=== PATIENT | female | born 1940 | race Caucasian/White ===

== ENCOUNTER 2023-03-20 10:24 | Outpatient (CLI) | payer MEDICARE, BC ==
[2023-03-20 11:59] LABS: Hematocrit 37.2 % (34.9-44.5); Hemoglobin 11.7 g/dL (12.0-15.5); Mean Corpuscular HGB CONC 31.5 g/dL (32.0-36.0); Mean Corpuscular Hemoglobin 32.7 pg (27.0-33.0); Mean Corpuscular Volume 103.9 fl (81.6-98.3); Mean Platelet Volume 9.5 fl (7.4-10.4); Platelet Count 293 10x3/uL (150-450); RBC Distribution Width 14.7 % (11.5-14.5); Red Blood Cell (RBC) Count 3.58 10x6/uL (3.90-5.03)
[2023-03-20 12:12] LABS: INR-International Normal Ratio 1.1; PTT 28.2 sec (22.0-33.0); Prothrombin Time 11.9 sec (9.5-12.1)
[2023-03-20 12:25] LABS: Anion Gap 17 mmol/L (10-20); BUN (Urea Nitrogen) 34 mg/dL (9.8-20.1); Calc. Creatinine Clearance 0 mL/min (70-130); Calcium 9.6 mg/dL (7.8-10.44); Carbon Dioxide 23 mmol/L (23-31); Chloride 105 mmol/L (98-107); Estimated GFR 49; Glucose 105 mg/dL (83-110); Potassium 4.1 mmol/L (3.5-5.1); Sodium 141 mmol/L (136-145)
== END 2023-03-20 10:25 | disposition home or self-care (01) ==
LOC: LABBT 10:24
PROVIDERS: ATTEND Urology
DX: Z01.818 Encounter for other preprocedural examination (principal); D49.4 Neoplasm of unspecified behavior of bladder; R31.0 Gross hematuria
CPT/HCPCS: 71046; 80048; 85027; 85610; 85730; 87077; 87086; 87186

== ENCOUNTER 2023-03-26 08:20 | Day surgery (SDC) | payer MEDICARE, BC ==
[2023-03-20 11:37] VITALS: BMI 26.6
[2023-03-26] MEDS ORDERED: fentaNYL PF 100 MCG/2 ML SYRINGE ONE (10:37)
[2023-03-26] MEDS ORDERED: LevoFLOXacin 500 mg/D5W 100 ML BAG ONE (10:44)
[2023-03-26] MEDS ORDERED: ePHEDrine Sulfate 50 MG/10 ML VIAL ONE (11:03)
[2023-03-26] MEDS ORDERED: Ondansetron PF 4 MG/2 ML Vial ONE (11:03)
[2023-03-26] MEDS ORDERED: Lidocaine 1% PF 5 ML VIAL ONE (11:03)
[2023-03-26] MEDS ORDERED: Dexamethasone 20 MG/5 ML VIAL ONE (11:03)
[2023-03-26] MEDS ORDERED: PROPOFOL 200 MG/20 ML VIAL ONE (11:03)
== END 2023-03-26 12:57 | disposition home or self-care (01) ==
LOC: SDC 08:20
PROVIDERS: ATTEND Urology
PROC: 0TBB8ZX Excision of Bladder, Via Natural or Artificial Opening Endoscopic, Diagnostic (ICD-10-PCS; principal; 2023-03-26)
DX: N30.21 Other chronic cystitis with hematuria (principal); D49.4 Neoplasm of unspecified behavior of bladder; I10 Essential (primary) hypertension; K21.9 Gastro-esophageal reflux disease without esophagitis; I47.10 Supraventricular tachycardia, unspecified; E11.9 Type 2 diabetes mellitus without complications; E03.9 Hypothyroidism, unspecified; E78.00 Pure hypercholesterolemia, unspecified; M85.80 Other specified disorders of bone density and structure, unspecified site; Z79.84 Long term (current) use of oral hypoglycemic drugs; Z79.899 Other long term (current) drug therapy
CPT/HCPCS: 88305; J1100; J1956; J2405; J2704

== ENCOUNTER 2024-05-28 11:24 | Emergency (ER) | payer MEDICARE ==
[2024-05-28] MEDS ORDERED: Ondansetron PF 4 MG/2 ML Vial ONE (13:36)
[2024-05-28] MEDS ORDERED: Morphine 4 MG/ML VIAL ONE (13:36)
== END 2024-05-28 14:49 | disposition home or self-care (01) ==
LOC: ERS 11:24
DX: M54.32 Sciatica, left side (principal); I10 Essential (primary) hypertension; E11.9 Type 2 diabetes mellitus without complications; E78.00 Pure hypercholesterolemia, unspecified; E03.9 Hypothyroidism, unspecified; Z79.899 Other long term (current) drug therapy; Z79.84 Long term (current) use of oral hypoglycemic drugs
CPT/HCPCS: J2272; J2405; 96374; 96375

== ENCOUNTER 2024-07-31 06:04 | Day surgery (SDC) | payer MEDICARE ==
[2024-07-27 09:34] VITALS: BMI 25.0
[2024-07-31] MEDS ORDERED: PROPOFOL 20 ML ONE (07:31)
[2024-07-31] MEDS ORDERED: Rocuronium Bromide 10 MG/ML (10ML VIAL) ONE (07:32)
[2024-07-31] MEDS ORDERED: Lidocaine 2% PF 5 ML VIAL ONE (07:32)
[2024-07-31] MEDS ORDERED: Bupivacaine PF 0.5% 30 ML VIAL ONE (08:04)
[2024-07-31] MEDS ORDERED: EPINEPHrine 1 MG/ML VIAL ONE (08:04)
[2024-07-31] MEDS ORDERED: fentaNYL PF 100 MCG/2 ML SYRINGE ONE (08:13)
[2024-07-31] MEDS ORDERED: CEFAZOLIN 2 GM VIAL ONE ×2 (08:16→12:27)
[2024-07-31] MEDS ORDERED: PHENYLEPHRINE-NS 100 MCG/ML 10 ML SYRINGE ONE (08:46)
[2024-07-31] MEDS ORDERED: SUGAMMADEX SODIUM 200 MG/2 ML VIAL ONE (08:47)
[2024-07-31] MEDS ORDERED: Ondansetron PF 4 MG/2 ML Vial ONE (08:47)
[2024-07-31] MEDS ORDERED: Dexamethasone 4 mg/ml Vial ONE (08:47)
[2024-07-31] MEDS ORDERED: ePHEDrine Sulfate 50 MG/10 ML VIAL ONE (09:12)
[2024-07-31] MEDS ORDERED: Esmolol 100 MG/10 ML VIAL ONE (09:23)
[2024-07-31] MEDS ORDERED: Ketorolac Tromethamine 30 MG (1 mL) VIAL ONE (09:59)
[2024-07-31] MEDS ORDERED: fentaNYL 50 mcg/mL 1 mL Vial ONE (09:59)
[2024-07-31] MEDS ORDERED: Labetalol HCl 100 MG/20 ML VIAL ONE (10:04)
[2024-07-31] MEDS ORDERED: HYDROmorphone 0.5 MG/0.5 ML SYRINGE ONE (10:20)
[2024-07-31] MEDS ORDERED: Sodium Chloride 0.9% 100 ML ONE (12:27)
== END 2024-07-31 13:46 | disposition home or self-care (01) ==
LOC: SDC 06:04
PROVIDERS: ATTEND Neurological Surgery
PROC: 0SB20ZZ Excision of Lumbar Vertebral Disc, Open Approach (ICD-10-PCS; principal; 2024-07-31)
DX: M51.16 Intervertebral disc disorders with radiculopathy, lumbar region (principal); I12.9 Hypertensive chronic kidney disease with stage 1 through stage 4 chronic kidney disease, or unspecified chronic kidney disease; N18.30 Chronic kidney disease, stage 3 unspecified; E11.22 Type 2 diabetes mellitus with diabetic chronic kidney disease; I47.10 Supraventricular tachycardia, unspecified; E78.5 Hyperlipidemia, unspecified; E03.9 Hypothyroidism, unspecified; K21.9 Gastro-esophageal reflux disease without esophagitis; B19.20 Unspecified viral hepatitis C without hepatic coma; Z96.643 Presence of artificial hip joint, bilateral; Z90.89 Acquired absence of other organs; Z79.84 Long term (current) use of oral hypoglycemic drugs; Z79.899 Other long term (current) drug therapy
CPT/HCPCS: 63030; J0171; J0665; J1100; J1171; J1885; J2405; J2704; J3010

== ENCOUNTER 2025-03-26 22:01 | Inpatient (IN) | payer MEDICARE ==
[2025-03-26] MEDS ORDERED: niCARdipine 25 MG/10 ML SDV ONE (22:12)
[2025-03-26 22:30] LABS: #Basophils 0.06 10x3/uL (0.0-0.2); #Eosinophils Less than 0.03 10x3/uL (0.0-0.7); #Monocytes 1.39 10x3/uL (0.11-0.59); #Neutrophils 18.87 10x3/uL (1.40-6.50); %Basophils 0.3 % (0.0-1.0); %Eosinophils 0.1 % (0.0-10.0); %Lymphocytes 3.5 % (21.0-51.0); %Monocytes 6.5 % (0.0-10.0); %Neutrophils 87.7 % (42.0-75.0); Hematocrit 27.5 % (36.0-47.0); Hemoglobin 9.0 g/dL (12.0-16.0); Mean Corpuscular Hemoglobin 32.7 pg (27.0-31.0); Mean Corpuscular Volume 100.0 fL (78.0-98.0); Platelet Count 273 10x3/uL (130-400); Red Blood Cell (RBC) Count 2.75 mill/uL (4.20-5.40); White Blood Cell (WBC) Count 21.51 10x3/uL (4.8-10.8)
[2025-03-26 22:55] LABS: ALT (SGPT) 22 U/L (Less than 34); AST (SGOT) 42 U/L (11-34); Albumin 1.9 g/dL (3.1-4.5); Alkaline Phosphatase 61 U/L (40-110); Anion Gap 19 mmol/L (10-20); BUN (Urea Nitrogen) 50 mg/dL (9.8-20.1); Bilirubin, Total 0.4 mg/dL (0.3-1.2); Calc. Creatinine Clearance 0 mL/min (70-130); Calcium 7.8 mg/dL (7.8-10.44); Carbon Dioxide 20 mmol/L (23-31); Chloride 98 mmol/L (98-107); Globulin 3.4 g/dL (2.4-3.5); Glucose 136 mg/dL (83-110); Potassium 2.9 mmol/L (3.5-5.1); Sodium 134 mmol/L (136-145)
[2025-03-27] MEDS ORDERED: cefTRIAXone (ROCEPHIN) 1 GM VIAL ONE (00:21)
[2025-03-27 00:35] LABS: Bacteria/HPF 2+ HPF (None Seen); CAUTI Indications for Culture Alt mental st,lethar; Glucose, Urine (Dipstick) Normal (Negative); Leukocyte 500 Leu/uL (Negative); Protein, Urine (Dipstick) 70 mg/dL (Neg-Trace); Specific Gravity, Urine 1.015 (1.002-1.036); WBC/HPF Greater than 50 HPF (0-3)
[2025-03-27 00:40] LABS: Urine Culture Reflex Yes Yes
[2025-03-27 01:13] LABS: Magnesium 1.6 mg/dL (1.6-2.6)
[2025-03-27] MEDS ORDERED: dilTIAZem 25 MG/5 ML VIAL ONE (02:29)
[2025-03-27] MEDS ORDERED: Enoxaparin 60 MG (0.6 mL) SYRINGE SC SCH ×2 (03:45→04:00)
[2025-03-27] MEDS ORDERED: Magnesium 2 GM/50 ML BAG (IN WATER) ONE (04:39)
[2025-03-27] MEDS ORDERED: NS 0.9% w/ 20 MEQ KCL 1,000 ML ONE (04:40)
[2025-03-27] MEDS ORDERED: Enoxaparin 80 MG (0.8 mL) SYRINGE ONE (04:40)
[2025-03-27] MEDS: NS 0.9% w/ 20 MEQ KCL 1,000 ML/1,000 ML BAG IV SCH (04:50)
[2025-03-27] MEDS: Magnesium 2 GM/50 ML(in water) 2 GM in Premix 1 BAG IVPB SCH (04:50)
[2025-03-27] MEDS: Enoxaparin 80 MG (0.8 mL) SYRINGE SC SCH ×2 (04:52→10:16)
[2025-03-27] MEDS ORDERED: Ondansetron PF 4 MG/2 ML Vial ONE (06:22)
[2025-03-27] MEDS: Ondansetron PF 4 MG/2 ML Vial IVP PRN (06:35)
[2025-03-27 07:42] LABS: Hematocrit 26.0 % (36.0-47.0); Hemoglobin 8.7 g/dL (12.0-16.0); Mean Corpuscular Hemoglobin 33.0 pg (27.0-31.0); Mean Corpuscular Volume 98.5 fL (78.0-98.0); Platelet Count 281 10x3/uL (130-400); Red Blood Cell (RBC) Count 2.64 mill/uL (4.20-5.40); White Blood Cell (WBC) Count 23.99 10x3/uL (4.8-10.8)
[2025-03-27 07:49] LABS: Anion Gap 15 mmol/L (10-20); BUN (Urea Nitrogen) 39 mg/dL (9.8-20.1); Calc. Creatinine Clearance 0 mL/min (70-130); Calcium 7.2 mg/dL (7.8-10.44); Carbon Dioxide 16 mmol/L (23-31); Chloride 102 mmol/L (98-107); Glucose 123 mg/dL (83-110); Potassium 3.4 mmol/L (3.5-5.1); Sodium 130 mmol/L (136-145)
[2025-03-27 08:32] LABS: Anisocytosis MARKED = >30 cells HPF (0-5); Burr Cells SLIGHT = 2-5 cells HPF (0-1); Macrocytosis MARKED = >30 cells HPF (0-5); Platelet Adequacy Comment Platelets Normal; Polychromasia SLIGHT = 2-3 cells HPF (0-2)
[2025-03-27 10:09] VITALS: BMI 24.9
[2025-03-27] MEDS ORDERED: Enoxaparin 100 MG (1 mL) SYRINGE ONE (10:17)
[2025-03-27 11:57] LABS: Anion Gap 13 mmol/L (10-20); BUN (Urea Nitrogen) 39 mg/dL (9.8-20.1); Calc. Creatinine Clearance 26 mL/min (70-130); Calcium 6.8 mg/dL (7.8-10.44); Carbon Dioxide 19 mmol/L (23-31); Chloride 102 mmol/L (98-107); Glucose 106 mg/dL (83-110); Iron 12 ug/dL (50-170); Iron Binding Capacity, Total 136 mcg/dL (265-497); Magnesium 2.0 mg/dL (1.6-2.6); Potassium 3.6 mmol/L (3.5-5.1); Sodium 130 mmol/L (136-145)
[2025-03-27 12:33] LABS: Ferritin 244.41 ng/mL (10-291); Vitamin B12 1359.0 pg/mL (211-911)
[2025-03-27] MEDS: Acetaminophen 325 MG TAB PO PRN (15:43)
[2025-03-27] MEDS ORDERED: Acetaminophen 325 MG TAB ONE (15:44)
[2025-03-27] MEDS ORDERED: cefTRIAXone (ROCEPHIN) 2 GM VIAL ONE (21:40)
[2025-03-27] MEDS: cefTRIAXone\\ROCEPHIN 2 GM in Sodium Chloride 0.9% 100 ML IVPB SCH (21:46)
[2025-03-28 05:28] LABS: Hematocrit 24.4 % (36.0-47.0); Hemoglobin 8.2 g/dL (12.0-16.0); Mean Corpuscular Hemoglobin 32.4 pg (27.0-31.0); Mean Corpuscular Volume 96.4 fL (78.0-98.0); Platelet Count 254 10x3/uL (130-400); Red Blood Cell (RBC) Count 2.53 mill/uL (4.20-5.40); White Blood Cell (WBC) Count 23.12 10x3/uL (4.8-10.8)
[2025-03-28 05:37] LABS: Anion Gap 10 mmol/L (10-20); BUN (Urea Nitrogen) 44 mg/dL (9.8-20.1); Calc. Creatinine Clearance 29 mL/min (70-130); Calcium 7.1 mg/dL (7.8-10.44); Carbon Dioxide 19 mmol/L (23-31); Chloride 101 mmol/L (98-107); Glucose 127 mg/dL (83-110); Magnesium 2.0 mg/dL (1.6-2.6); Potassium 3.3 mmol/L (3.5-5.1); Sodium 127 mmol/L (136-145)
[2025-03-28 05:58] LABS: Burr Cells SLIGHT = 2-5 cells HPF (0-1); Platelet Adequacy Comment Platelets Normal; Smudge Cells 1.0 %
[2025-03-28] MEDS: Enoxaparin 80 MG (0.8 mL) SYRINGE SC SCH (08:54)
[2025-03-28 21:03] LABS: Osmolality, Serum 282 mOsm/kg (280-301)
[2025-03-29 00:46] LABS: #Basophils 0.05 10x3/uL (0.0-0.2); #Eosinophils Less than 0.03 10x3/uL (0.0-0.7); #Monocytes 2.38 10x3/uL (0.11-0.59); #Neutrophils 18.38 10x3/uL (1.40-6.50); %Basophils 0.2 % (0.0-1.0); %Eosinophils 0.0 % (0.0-10.0); %Lymphocytes 5.4 % (21.0-51.0); %Monocytes 10.6 % (0.0-10.0); %Neutrophils 81.6 % (42.0-75.0); Hematocrit 24.8 % (36.0-47.0); Hemoglobin 8.4 g/dL (12.0-16.0); Mean Corpuscular Hemoglobin 32.1 pg (27.0-31.0); Mean Corpuscular Volume 94.7 fL (78.0-98.0); Platelet Count 269 10x3/uL (130-400); Red Blood Cell (RBC) Count 2.62 mill/uL (4.20-5.40); White Blood Cell (WBC) Count 22.52 10x3/uL (4.8-10.8)
[2025-03-29 01:03] LABS: ALT (SGPT) 27 U/L (Less than 34); AST (SGOT) 49 U/L (11-34); Albumin 1.6 g/dL (3.1-4.5); Alkaline Phosphatase 73 U/L (40-110); Anion Gap 14 mmol/L (10-20); BUN (Urea Nitrogen) 42 mg/dL (9.8-20.1); Bilirubin, Total 0.3 mg/dL (0.3-1.2); Calc. Creatinine Clearance 36 mL/min (70-130); Calcium 7.3 mg/dL (7.8-10.44); Carbon Dioxide 17 mmol/L (23-31); Chloride 104 mmol/L (98-107); Globulin 3.4 g/dL (2.4-3.5); Glucose 126 mg/dL (83-110); Lipase 45 U/L (8-78); Magnesium 2.0 mg/dL (1.6-2.6); Potassium 4.0 mmol/L (3.5-5.1); Sodium 131 mmol/L (136-145)
[2025-03-29] MEDS ORDERED: HYDROcodone/Acetaminophen 5/325 mg Tablet PO PRN (02:22)
[2025-03-29 06:22] LABS: Hematocrit 27.1 % (36.0-47.0); Hemoglobin 8.9 g/dL (12.0-16.0); Mean Corpuscular Hemoglobin 31.8 pg (27.0-31.0); Mean Corpuscular Volume 96.8 fL (78.0-98.0); Platelet Count 282 10x3/uL (130-400); Red Blood Cell (RBC) Count 2.80 mill/uL (4.20-5.40); White Blood Cell (WBC) Count 17.53 10x3/uL (4.8-10.8)
[2025-03-29 06:31] LABS: ALT (SGPT) 23 U/L (Less than 34); AST (SGOT) 44 U/L (11-34); Albumin 1.5 g/dL (3.1-4.5); Alkaline Phosphatase 62 U/L (40-110); Anion Gap 12 mmol/L (10-20); BUN (Urea Nitrogen) 43 mg/dL (9.8-20.1); Bilirubin, Total 0.3 mg/dL (0.3-1.2); Calc. Creatinine Clearance 36 mL/min (70-130); Calcium 7.1 mg/dL (7.8-10.44); Carbon Dioxide 17 mmol/L (23-31); Chloride 106 mmol/L (98-107); Globulin 3.2 g/dL (2.4-3.5); Glucose 135 mg/dL (83-110); Potassium 4.1 mmol/L (3.5-5.1); Sodium 131 mmol/L (136-145)
[2025-03-29 08:44] LABS: Anisocytosis MODERATE=16-30 cells HPF (0-5); Burr Cells MARKED = >16 cells HPF (0-1); Ovalocytes SLIGHT = 2-5 cells HPF (0-1); Platelet Adequacy Comment Platelets Normal; Poikilocytosis SLIGHT = 6-15 cells HPF (0-5); Polychromasia SLIGHT = 2-3 cells HPF (0-2); Schistocytes SLIGHT = 2-5 cells HPF (0-1); Smudge Cells 1.9 %
[2025-03-29 08:48] LABS: Toxic Granulation MODERATE
[2025-03-29] MEDS ORDERED: Lidocaine 1% PF 5 ML VIAL ONE (09:19)
[2025-03-29] MEDS ORDERED: Rocuronium Bromide 10 MG/ML (10ML VIAL) ONE (09:19)
[2025-03-29] MEDS ORDERED: Ondansetron PF 4 MG/2 ML Vial ONE (09:19)
[2025-03-29] MEDS ORDERED: fentaNYL PF 100 MCG/2 ML SYRINGE ONE (09:19)
[2025-03-29] MEDS ORDERED: SUGAMMADEX SODIUM 200 MG/2 ML VIAL ONE (09:19)
[2025-03-29] MEDS ORDERED: SUCCINYLCHOLINE/SOD CL,ISO/PF 200 MG/10 ML SYRINGE FS ONE (09:19)
[2025-03-29] MEDS ORDERED: PROPOFOL 20 ML ONE (09:19)
[2025-03-29] MEDS ORDERED: PHENYLEPHRINE-NS 100 MCG/ML 10 ML SYRINGE ONE (10:46)
[2025-03-29 17:19] LABS: Osmolality, Urine 349 mOsm/kg (50-1200)
[2025-03-29 18:22] LABS: Anion Gap 9 mmol/L (10-20); BUN (Urea Nitrogen) 42 mg/dL (9.8-20.1); Calc. Creatinine Clearance 37 mL/min (70-130); Calcium 6.6 mg/dL (7.8-10.44); Carbon Dioxide 16 mmol/L (23-31); Chloride 110 mmol/L (98-107); Glucose 119 mg/dL (83-110); Potassium 4.0 mmol/L (3.5-5.1); Sodium 131 mmol/L (136-145)
[2025-03-29 18:23] LABS: Hematocrit 25.0 % (36.0-47.0); Hemoglobin 7.9 g/dL (12.0-16.0); Mean Corpuscular Hemoglobin 32.2 pg (27.0-31.0); Mean Corpuscular Volume 102.0 fL (78.0-98.0); Platelet Count 235 10x3/uL (130-400); Red Blood Cell (RBC) Count 2.45 mill/uL (4.20-5.40); White Blood Cell (WBC) Count 14.89 10x3/uL (4.8-10.8)
[2025-03-29 18:52] LABS: Anisocytosis MODERATE=16-30 cells HPF (0-5); Burr Cells MARKED = >16 cells HPF (0-1); Macrocytosis MODERATE=16-30 cells HPF (0-5); Ovalocytes SLIGHT = 2-5 cells HPF (0-1); Platelet Adequacy Comment Platelets Normal; Poikilocytosis MODERATE=16-30 cells HPF (0-5); Polychromasia MODERATE = 3-4 cells HPF (0-2); Smudge Cells 1.0 %
[2025-03-30] MEDS: Hyoscyamine SL 0.125 MG TAB PO SCH (03:56)
[2025-03-30 05:25] LABS: Hematocrit 27.5 % (36.0-47.0); Hemoglobin 9.1 g/dL (12.0-16.0); Mean Corpuscular Hemoglobin 32.3 pg (27.0-31.0); Mean Corpuscular Volume 97.5 fL (78.0-98.0); Platelet Count 258 10x3/uL (130-400); Red Blood Cell (RBC) Count 2.82 mill/uL (4.20-5.40); White Blood Cell (WBC) Count 12.87 10x3/uL (4.8-10.8)
[2025-03-30 05:45] LABS: ALT (SGPT) 23 U/L (Less than 34); AST (SGOT) 50 U/L (11-34); Albumin 1.3 g/dL (3.1-4.5); Alkaline Phosphatase 71 U/L (40-110); Anion Gap 14 mmol/L (10-20); BUN (Urea Nitrogen) 43 mg/dL (9.8-20.1); Bilirubin, Total 0.3 mg/dL (0.3-1.2); Calc. Creatinine Clearance 36 mL/min (70-130); Calcium 7.1 mg/dL (7.8-10.44); Carbon Dioxide 18 mmol/L (23-31); Chloride 110 mmol/L (98-107); Globulin 3.5 g/dL (2.4-3.5); Glucose 109 mg/dL (83-110); Potassium 3.9 mmol/L (3.5-5.1); Sodium 138 mmol/L (136-145)
[2025-03-30 05:58] LABS: Platelet Adequacy Comment Platelets Normal; Polychromasia SLIGHT = 2-3 cells HPF (0-2); Smudge Cells 1.0 %
[2025-03-30] MEDS: Pantoprazole 40 MG VIAL IVP SCH (08:04)
[2025-03-30] MEDS: dilTIAZem 25 MG/5 ML VIAL SLOW IVP SCH (10:22)
[2025-03-30] MEDS ORDERED: HYDROmorphone 0.5 MG/0.5 ML SYRINGE SLOW IVP PRN (16:53)
[2025-03-31 06:38] LABS: #Basophils 0.04 10x3/uL (0.0-0.2); #Eosinophils 0.07 10x3/uL (0.0-0.7); #Monocytes 0.94 10x3/uL (0.11-0.59); #Neutrophils 10.02 10x3/uL (1.40-6.50); %Basophils 0.3 % (0.0-1.0); %Eosinophils 0.6 % (0.0-10.0); %Lymphocytes 8.2 % (21.0-51.0); %Monocytes 7.6 % (0.0-10.0); %Neutrophils 80.7 % (42.0-75.0); Hematocrit 26.1 % (36.0-47.0); Hemoglobin 8.6 g/dL (12.0-16.0); Mean Corpuscular Hemoglobin 32.7 pg (27.0-31.0); Mean Corpuscular Volume 99.2 fL (78.0-98.0); Platelet Count 251 10x3/uL (130-400); Red Blood Cell (RBC) Count 2.63 mill/uL (4.20-5.40); White Blood Cell (WBC) Count 12.41 10x3/uL (4.8-10.8)
[2025-03-31 07:14] LABS: ALT (SGPT) 20 U/L (Less than 34); AST (SGOT) 39 U/L (11-34); Albumin 1.3 g/dL (3.1-4.5); Alkaline Phosphatase 66 U/L (40-110); Anion Gap 14 mmol/L (10-20); BUN (Urea Nitrogen) 34 mg/dL (9.8-20.1); Bilirubin, Total 0.3 mg/dL (0.3-1.2); Calc. Creatinine Clearance 44 mL/min (70-130); Calcium 7.1 mg/dL (7.8-10.44); Carbon Dioxide 16 mmol/L (23-31); Chloride 117 mmol/L (98-107); Globulin 3.3 g/dL (2.4-3.5); Glucose 110 mg/dL (83-110); Potassium 3.5 mmol/L (3.5-5.1); Sodium 143 mmol/L (136-145)
[2025-03-31] MEDS: Metoprolol Tartrate 5 MG (5 mL) VIAL IVP SCH (16:43)
[2025-03-31] MEDS ORDERED: hydrALAZINE 20 MG/ML VIAL SLOW IVP PRN (17:21)
[2025-03-31] MEDS: Heparin 5,000 UNITS/ML VIAL SC SCH (22:48)
[2025-03-31] MEDS: Calcium Carbonate 500 MG ChewTAB PO SCH (23:27)
[2025-04-01 05:53] LABS: #Basophils Less than 0.03 10x3/uL (0.0-0.2); #Eosinophils 0.07 10x3/uL (0.0-0.7); #Monocytes 0.94 10x3/uL (0.11-0.59); #Neutrophils 7.35 10x3/uL (1.40-6.50); %Basophils 0.2 % (0.0-1.0); %Eosinophils 0.7 % (0.0-10.0); %Lymphocytes 13.4 % (21.0-51.0); %Monocytes 9.3 % (0.0-10.0); %Neutrophils 73.0 % (42.0-75.0); Hematocrit 26.9 % (36.0-47.0); Hemoglobin 8.4 g/dL (12.0-16.0); Mean Corpuscular Hemoglobin 31.8 pg (27.0-31.0); Mean Corpuscular Volume 101.9 fL (78.0-98.0); Platelet Count 235 10x3/uL (130-400); Red Blood Cell (RBC) Count 2.64 mill/uL (4.20-5.40); White Blood Cell (WBC) Count 10.07 10x3/uL (4.8-10.8)
[2025-04-01 06:14] LABS: ALT (SGPT) 22 U/L (Less than 34); AST (SGOT) 36 U/L (11-34); Albumin 1.5 g/dL (3.1-4.5); Alkaline Phosphatase 56 U/L (40-110); Anion Gap 12 mmol/L (10-20); BUN (Urea Nitrogen) 25 mg/dL (9.8-20.1); Bilirubin, Total 0.5 mg/dL (0.3-1.2); Calc. Creatinine Clearance 51 mL/min (70-130); Calcium 7.6 mg/dL (7.8-10.44); Carbon Dioxide 17 mmol/L (23-31); Chloride 121 mmol/L (98-107); Globulin 3.1 g/dL (2.4-3.5); Glucose 123 mg/dL (83-110); Potassium 3.4 mmol/L (3.5-5.1); Sodium 147 mmol/L (136-145)
[2025-04-01] MEDS: Potassium Chloride 20 MEQ in Premix 1 BAG IVPB SCH (09:12)
[2025-04-01] MEDS: Furosemide 40 MG (4 mL) VIAL SLOW IVP SCH (09:45)
[2025-04-01] MEDS: Gabapentin 300 MG CAP PO SCH (10:26)
[2025-04-01] MEDS: hydrALAZINE 20 MG/ML VIAL SLOW IVP SCH (11:52)
[2025-04-01 19:02] LABS: Potassium 3.4 mmol/L (3.5-5.1)
[2025-04-02 04:11] LABS: #Basophils 0.03 10x3/uL (0.0-0.2); #Eosinophils 0.07 10x3/uL (0.0-0.7); #Monocytes 0.87 10x3/uL (0.11-0.59); #Neutrophils 7.42 10x3/uL (1.40-6.50); %Basophils 0.3 % (0.0-1.0); %Eosinophils 0.7 % (0.0-10.0); %Lymphocytes 11.8 % (21.0-51.0); %Monocytes 8.9 % (0.0-10.0); %Neutrophils 75.9 % (42.0-75.0); Hematocrit 27.3 % (36.0-47.0); Hemoglobin 8.6 g/dL (12.0-16.0); Mean Corpuscular Hemoglobin 32.1 pg (27.0-31.0); Mean Corpuscular Volume 101.9 fL (78.0-98.0); Platelet Count 222 10x3/uL (130-400); Red Blood Cell (RBC) Count 2.68 mill/uL (4.20-5.40); White Blood Cell (WBC) Count 9.77 10x3/uL (4.8-10.8)
[2025-04-02 04:43] LABS: ALT (SGPT) 42 U/L (Less than 34); AST (SGOT) 82 U/L (11-34); Albumin 1.5 g/dL (3.1-4.5); Alkaline Phosphatase 56 U/L (40-110); Anion Gap 14 mmol/L (10-20); BUN (Urea Nitrogen) 20 mg/dL (9.8-20.1); Bilirubin, Total 0.8 mg/dL (0.3-1.2); Calc. Creatinine Clearance 52 mL/min (70-130); Calcium 7.8 mg/dL (7.8-10.44); Carbon Dioxide 18 mmol/L (23-31); Chloride 117 mmol/L (98-107); Globulin 3.4 g/dL (2.4-3.5); Glucose 128 mg/dL (83-110); Potassium 3.3 mmol/L (3.5-5.1); Sodium 146 mmol/L (136-145)
[2025-04-02] MEDS ORDERED: MD-Gastroview 120 ML BOT ONE (09:09)
[2025-04-02] MEDS: Potassium Phosphate 30 MMOL in Sodium Chloride 0.9% 250 ML 250 ML IVPB SCH (10:24)
[2025-04-02 12:39] VITALS: BMI 27.9
[2025-04-02 18:38] LABS: Potassium 4.0 mmol/L (3.5-5.1)
[2025-04-03 05:53] LABS: #Basophils Less than 0.03 10x3/uL (0.0-0.2); #Eosinophils 0.18 10x3/uL (0.0-0.7); #Monocytes 0.82 10x3/uL (0.11-0.59); #Neutrophils 7.18 10x3/uL (1.40-6.50); %Basophils 0.2 % (0.0-1.0); %Eosinophils 1.8 % (0.0-10.0); %Lymphocytes 15.3 % (21.0-51.0); %Monocytes 8.3 % (0.0-10.0); %Neutrophils 72.7 % (42.0-75.0); Hematocrit 26.6 % (36.0-47.0); Hemoglobin 8.4 g/dL (12.0-16.0); Mean Corpuscular Hemoglobin 31.5 pg (27.0-31.0); Mean Corpuscular Volume 99.6 fL (78.0-98.0); Platelet Count 194 10x3/uL (130-400); Red Blood Cell (RBC) Count 2.67 mill/uL (4.20-5.40); White Blood Cell (WBC) Count 9.88 10x3/uL (4.8-10.8)
[2025-04-03 06:06] LABS: ALT (SGPT) 66 U/L (Less than 34); AST (SGOT) 103 U/L (11-34); Albumin 1.5 g/dL (3.1-4.5); Alkaline Phosphatase 59 U/L (40-110); Anion Gap 13 mmol/L (10-20); BUN (Urea Nitrogen) 21 mg/dL (9.8-20.1); Bilirubin, Total 0.6 mg/dL (0.3-1.2); Calc. Creatinine Clearance 56 mL/min (70-130); Calcium 7.4 mg/dL (7.8-10.44); Carbon Dioxide 23 mmol/L (23-31); Chloride 112 mmol/L (98-107); Globulin 3.4 g/dL (2.4-3.5); Glucose 113 mg/dL (83-110); Potassium 3.4 mmol/L (3.5-5.1); Sodium 145 mmol/L (136-145)
[2025-04-03] MEDS ORDERED: Potassium Bicarbonate/Cit Ac 20 MEQ TAB PER TUBE SCH (08:00)
[2025-04-03] MEDS: Potassium Bicarbonate/Cit Ac 20 MEQ TAB PO SCH (09:20)
[2025-04-03] MEDS: Valsartan 80 MG TAB PO SCH (09:36)
[2025-04-03] MEDS: Metoprolol Succinate XL 50 MG ER.TAB PO SCH (09:38)
[2025-04-03] MEDS: Albumin 25% 25 GM (100 mL) BOT IVPB SCH (22:14)
[2025-04-04 04:50] LABS: #Basophils Less than 0.03 10x3/uL (0.0-0.2); #Eosinophils 0.17 10x3/uL (0.0-0.7); #Monocytes 0.75 10x3/uL (0.11-0.59); #Neutrophils 6.56 10x3/uL (1.40-6.50); %Basophils 0.1 % (0.0-1.0); %Eosinophils 1.8 % (0.0-10.0); %Lymphocytes 17.3 % (21.0-51.0); %Monocytes 8.1 % (0.0-10.0); %Neutrophils 70.9 % (42.0-75.0); Hematocrit 22.4 % (36.0-47.0); Hemoglobin 7.1 g/dL (12.0-16.0); Mean Corpuscular Hemoglobin 31.1 pg (27.0-31.0); Mean Corpuscular Volume 98.2 fL (78.0-98.0); Platelet Count 156 10x3/uL (130-400); Red Blood Cell (RBC) Count 2.28 mill/uL (4.20-5.40); White Blood Cell (WBC) Count 9.26 10x3/uL (4.8-10.8)
[2025-04-04 05:09] LABS: ALT (SGPT) 54 U/L (Less than 34); AST (SGOT) 75 U/L (11-34); Albumin 1.8 g/dL (3.1-4.5); Alkaline Phosphatase 46 U/L (40-110); Anion Gap 12 mmol/L (10-20); BUN (Urea Nitrogen) 18 mg/dL (9.8-20.1); Bilirubin, Total 0.6 mg/dL (0.3-1.2); Calc. Creatinine Clearance 52 mL/min (70-130); Calcium 7.2 mg/dL (7.8-10.44); Carbon Dioxide 21 mmol/L (23-31); Chloride 112 mmol/L (98-107); Globulin 2.6 g/dL (2.4-3.5); Glucose 102 mg/dL (83-110); Potassium 3.4 mmol/L (3.5-5.1); Sodium 142 mmol/L (136-145)
[2025-04-04 08:09] LABS: Hematocrit 24.2 % (36.0-47.0); Hemoglobin 7.8 g/dL (12.0-16.0)
[2025-04-04] MEDS ORDERED: Metoprolol Succinate XL 50 MG ER.TAB PO SCH (09:00)
[2025-04-04] MEDS: Potassium Bicarbonate/Cit Ac 20 MEQ TAB PO SCH (09:03)
[2025-04-05] MEDS: Enoxaparin 40 MG (0.4 mL) SYRINGE SC SCH (09:21)
[2025-04-05] MEDS ORDERED: PHOS-NAK 1 PKT PACK PO PRN (12:45)
[2025-04-05] MEDS ORDERED: Magnesium 2 GM/50 ML(in water) 2 GM in Premix 1 BAG IVPB PRN (12:45)
[2025-04-05] MEDS ORDERED: Potassium Chloride 20 MEQ in Premix 1 BAG IVPB PRN (12:45)
[2025-04-05 13:55] LABS: #Basophils 0.04 10x3/uL (0.0-0.2); #Eosinophils 0.16 10x3/uL (0.0-0.7); #Monocytes 0.83 10x3/uL (0.11-0.59); #Neutrophils 9.49 10x3/uL (1.40-6.50); %Basophils 0.3 % (0.0-1.0); %Eosinophils 1.3 % (0.0-10.0); %Lymphocytes 12.3 % (21.0-51.0); %Monocytes 6.8 % (0.0-10.0); %Neutrophils 77.9 % (42.0-75.0); Hematocrit 27.4 % (36.0-47.0); Hemoglobin 8.7 g/dL (12.0-16.0); Mean Corpuscular Hemoglobin 31.8 pg (27.0-31.0); Mean Corpuscular Volume 100.0 fL (78.0-98.0); Platelet Count 143 10x3/uL (130-400); Red Blood Cell (RBC) Count 2.74 mill/uL (4.20-5.40); White Blood Cell (WBC) Count 12.19 10x3/uL (4.8-10.8)
[2025-04-05 14:14] LABS: Anion Gap 15 mmol/L (10-20); BUN (Urea Nitrogen) 14 mg/dL (9.8-20.1); Calc. Creatinine Clearance 54 mL/min (70-130); Calcium 7.4 mg/dL (7.8-10.44); Carbon Dioxide 17 mmol/L (23-31); Chloride 108 mmol/L (98-107); Glucose 157 mg/dL (83-110); Potassium 3.6 mmol/L (3.5-5.1); Sodium 136 mmol/L (136-145)
[2025-04-05] MEDS: Pantoprazole 40 MG DR.TAB PO SCH (20:56)
[2025-04-06] MEDS ORDERED: Metoprolol Succinate XL 25 MG ER.TAB PO SCH (09:00)
[2025-04-06] MEDS: Metoprolol Succinate XL 25 MG ER.TAB PO SCH (10:06)
[2025-04-06] MEDS ORDERED: Lidocaine 1% w/Epinephrine 1:100K 20 ML VIAL ONE (15:08)
[2025-04-08] MEDS: Metoprolol Succinate XL 50 MG ER.TAB PO SCH (09:57)
[2025-04-08] MEDS: Furosemide 20 MG TAB PO SCH ×2 (11:30→14:56)
[2025-04-08] MEDS: Cephalexin 250 MG CAP PO SCH (13:15)
[2025-04-09 06:51] LABS: #Basophils 0.04 10x3/uL (0.0-0.2); #Eosinophils 0.15 10x3/uL (0.0-0.7); #Monocytes 0.93 10x3/uL (0.11-0.59); #Neutrophils 4.37 10x3/uL (1.40-6.50); %Basophils 0.6 % (0.0-1.0); %Eosinophils 2.2 % (0.0-10.0); %Lymphocytes 19.4 % (21.0-51.0); %Monocytes 13.5 % (0.0-10.0); %Neutrophils 63.4 % (42.0-75.0); Hematocrit 26.0 % (36.0-47.0); Hemoglobin 7.7 g/dL (12.0-16.0); Mean Corpuscular Hemoglobin 31.2 pg (27.0-31.0); Mean Corpuscular Volume 105.3 fL (78.0-98.0); Platelet Count 174 10x3/uL (130-400); Red Blood Cell (RBC) Count 2.47 mill/uL (4.20-5.40); White Blood Cell (WBC) Count 6.89 10x3/uL (4.8-10.8)
[2025-04-09 08:26] LABS: Chloride 107 mmol/L (98-107); Potassium 4.4 mmol/L (3.5-5.1); Sodium 140 mmol/L (136-145)
[2025-04-09 08:27] LABS: Calcium 8.0 mg/dL (7.8-10.44); Glucose 106 mg/dL (83-110)
[2025-04-09 08:29] LABS: Anion Gap 15 mmol/L (10-20); Carbon Dioxide 22 mmol/L (23-31)
[2025-04-09 08:31] LABS: BUN (Urea Nitrogen) 15 mg/dL (9.8-20.1); Calc. Creatinine Clearance 50 mL/min (70-130)
[2025-04-09] MEDS: Diphenoxylate HCl/Atropine Tablet PO SCH (09:23)
[2025-04-09] MEDS: Pregabalin 50 MG CAP PO SCH (09:24)
[2025-04-10 04:14] LABS: #Basophils 0.04 10x3/uL (0.0-0.2); #Eosinophils 0.17 10x3/uL (0.0-0.7); #Monocytes 0.96 10x3/uL (0.11-0.59); #Neutrophils 4.51 10x3/uL (1.40-6.50); %Basophils 0.6 % (0.0-1.0); %Eosinophils 2.3 % (0.0-10.0); %Lymphocytes 20.8 % (21.0-51.0); %Monocytes 13.2 % (0.0-10.0); %Neutrophils 62.3 % (42.0-75.0); Hematocrit 23.1 % (36.0-47.0); Hemoglobin 7.3 g/dL (12.0-16.0); Mean Corpuscular Hemoglobin 32.2 pg (27.0-31.0); Mean Corpuscular Volume 101.8 fL (78.0-98.0); Platelet Count 192 10x3/uL (130-400); Red Blood Cell (RBC) Count 2.27 mill/uL (4.20-5.40); White Blood Cell (WBC) Count 7.25 10x3/uL (4.8-10.8)
[2025-04-10 04:34] LABS: Anion Gap 12 mmol/L (10-20); BUN (Urea Nitrogen) 16 mg/dL (9.8-20.1); Calc. Creatinine Clearance 52 mL/min (70-130); Calcium 8.2 mg/dL (7.8-10.44); Carbon Dioxide 26 mmol/L (23-31); Chloride 104 mmol/L (98-107); Glucose 93 mg/dL (83-110); Potassium 4.4 mmol/L (3.5-5.1); Sodium 138 mmol/L (136-145)
[2025-04-11 08:28] LABS: Hematocrit 26.0 % (36.0-47.0); Hemoglobin 8.1 g/dL (12.0-16.0); Mean Corpuscular Hemoglobin 31.4 pg (27.0-31.0); Mean Corpuscular Volume 100.8 fL (78.0-98.0); Platelet Count 235 10x3/uL (130-400); Red Blood Cell (RBC) Count 2.58 mill/uL (4.20-5.40); White Blood Cell (WBC) Count 8.84 10x3/uL (4.8-10.8)
[2025-04-11 08:43] LABS: Anion Gap 15 mmol/L (10-20); BUN (Urea Nitrogen) 14 mg/dL (9.8-20.1); Calc. Creatinine Clearance 54 mL/min (70-130); Calcium 8.3 mg/dL (7.8-10.44); Carbon Dioxide 27 mmol/L (23-31); Chloride 99 mmol/L (98-107); Glucose 115 mg/dL (83-110); Potassium 4.1 mmol/L (3.5-5.1); Sodium 137 mmol/L (136-145)
[2025-04-12 04:37] LABS: Hematocrit 22.2 % (36.0-47.0); Hemoglobin 6.9 g/dL (12.0-16.0); Mean Corpuscular Hemoglobin 31.4 pg (27.0-31.0); Mean Corpuscular Volume 100.9 fL (78.0-98.0); Platelet Count 212 10x3/uL (130-400); Red Blood Cell (RBC) Count 2.20 mill/uL (4.20-5.40); White Blood Cell (WBC) Count 6.48 10x3/uL (4.8-10.8)
[2025-04-12 05:00] LABS: Anion Gap 13 mmol/L (10-20); BUN (Urea Nitrogen) 14 mg/dL (9.8-20.1); Calc. Creatinine Clearance 57 mL/min (70-130); Calcium 7.9 mg/dL (7.8-10.44); Carbon Dioxide 30 mmol/L (23-31); Chloride 101 mmol/L (98-107); Glucose 87 mg/dL (83-110); Potassium 4.0 mmol/L (3.5-5.1); Sodium 140 mmol/L (136-145)
[2025-04-12 09:17] LABS: Hematocrit 23.5 % (36.0-47.0); Hemoglobin 7.4 g/dL (12.0-16.0)
[2025-04-13 03:51] LABS: Hematocrit 22.2 % (36.0-47.0); Hemoglobin 6.8 g/dL (12.0-16.0); Mean Corpuscular Hemoglobin 30.6 pg (27.0-31.0); Mean Corpuscular Volume 100.0 fL (78.0-98.0); Platelet Count 203 10x3/uL (130-400); Red Blood Cell (RBC) Count 2.22 mill/uL (4.20-5.40); White Blood Cell (WBC) Count 6.53 10x3/uL (4.8-10.8)
[2025-04-13 04:03] LABS: Anion Gap 11 mmol/L (10-20); BUN (Urea Nitrogen) 13 mg/dL (9.8-20.1); Calc. Creatinine Clearance 59 mL/min (70-130); Calcium 8.0 mg/dL (7.8-10.44); Carbon Dioxide 28 mmol/L (23-31); Chloride 104 mmol/L (98-107); Glucose 100 mg/dL (83-110); Potassium 4.2 mmol/L (3.5-5.1); Sodium 139 mmol/L (136-145)
[2025-04-13] MEDS ORDERED: Iopamidol-370 76% 500 ML MDV (1 ML CHARGE) ONE (09:50)
[2025-04-14 03:48] LABS: Hematocrit 24.8 % (36.0-47.0); Hemoglobin 7.6 g/dL (12.0-16.0); Mean Corpuscular Hemoglobin 29.2 pg (27.0-31.0); Mean Corpuscular Volume 95.4 fL (78.0-98.0); Platelet Count 197 10x3/uL (130-400); Red Blood Cell (RBC) Count 2.60 mill/uL (4.20-5.40); White Blood Cell (WBC) Count 6.82 10x3/uL (4.8-10.8)
[2025-04-14 04:12] LABS: Anion Gap 12 mmol/L (10-20); BUN (Urea Nitrogen) 11 mg/dL (9.8-20.1); Calc. Creatinine Clearance 58 mL/min (70-130); Calcium 7.9 mg/dL (7.8-10.44); Carbon Dioxide 27 mmol/L (23-31); Chloride 104 mmol/L (98-107); Glucose 83 mg/dL (83-110); Potassium 4.0 mmol/L (3.5-5.1); Sodium 139 mmol/L (136-145)
[2025-04-14 10:06] LABS: Iron 43 ug/dL (50-170); Iron Binding Capacity, Total 144 mcg/dL (265-497)
[2025-04-15 04:01] LABS: #Basophils 0.05 10x3/uL (0.0-0.2); #Eosinophils 0.37 10x3/uL (0.0-0.7); #Monocytes 0.84 10x3/uL (0.11-0.59); #Neutrophils 3.46 10x3/uL (1.40-6.50); %Basophils 0.8 % (0.0-1.0); %Eosinophils 5.9 % (0.0-10.0); %Lymphocytes 23.9 % (21.0-51.0); %Monocytes 13.3 % (0.0-10.0); %Neutrophils 54.7 % (42.0-75.0); Hematocrit 28.5 % (36.0-47.0); Hemoglobin 9.0 g/dL (12.0-16.0); Mean Corpuscular Hemoglobin 29.5 pg (27.0-31.0); Mean Corpuscular Volume 93.4 fL (78.0-98.0); Platelet Count 180 10x3/uL (130-400); Red Blood Cell (RBC) Count 3.05 mill/uL (4.20-5.40); White Blood Cell (WBC) Count 6.32 10x3/uL (4.8-10.8)
[2025-04-15 04:22] LABS: Anion Gap 13 mmol/L (10-20); BUN (Urea Nitrogen) 15 mg/dL (9.8-20.1); Calc. Creatinine Clearance 54 mL/min (70-130); Calcium 8.2 mg/dL (7.8-10.44); Carbon Dioxide 24 mmol/L (23-31); Chloride 108 mmol/L (98-107); Glucose 99 mg/dL (83-110); Potassium 4.3 mmol/L (3.5-5.1); Sodium 141 mmol/L (136-145)
[2025-04-15 11:18] VITALS: BP 120/55; TEMP 98.2
== END 2025-04-15 11:45 | DRG 853 ==
LOC: ERS 22:01 → ERHOLD 03-27 02:55 → OBS 03-27 22:43 → 2SE 04-01 17:40
PROVIDERS: ADMIT Internal Medicine; ATTEND Internal Medicine
PROC: 3E03329 Introduction of Other Anti-infective into Peripheral Vein, Percutaneous Approach (ICD-10-PCS; 2025-03-27)
PROC: 0DQ90ZZ Repair Duodenum, Open Approach (ICD-10-PCS; principal; 2025-03-29)
PROC: 30233J1 Transfusion of Nonautologous Serum Albumin into Peripheral Vein, Percutaneous Approach (ICD-10-PCS; 2025-04-03)
PROC: 30233N1 Transfusion of Nonautologous Red Blood Cells into Peripheral Vein, Percutaneous Approach (ICD-10-PCS; 2025-04-13)
DX: A41.9 Sepsis, unspecified organism (principal); K26.5 Chronic or unspecified duodenal ulcer with perforation; N17.9 Acute kidney failure, unspecified; E87.1 Hypo-osmolality and hyponatremia; E87.0 Hyperosmolality and hypernatremia; N30.00 Acute cystitis without hematuria; E03.9 Hypothyroidism, unspecified; Z98.890 Other specified postprocedural states; D64.9 Anemia, unspecified; Z79.899 Other long term (current) drug therapy; E78.5 Hyperlipidemia, unspecified; I48.0 Paroxysmal atrial fibrillation; I95.9 Hypotension, unspecified; E87.70 Fluid overload, unspecified; E87.6 Hypokalemia; E11.43 Type 2 diabetes mellitus with diabetic autonomic (poly)neuropathy; K31.84 Gastroparesis; R33.8 Other retention of urine; N18.30 Chronic kidney disease, stage 3 unspecified; I12.9 Hypertensive chronic kidney disease with stage 1 through stage 4 chronic kidney disease, or unspecified chronic kidney disease; K21.9 Gastro-esophageal reflux disease without esophagitis; B96.1 Klebsiella pneumoniae [K. pneumoniae] as the cause of diseases classified elsewhere
CPT/HCPCS: 33285; 36415; 36416; 36430; 51701; 71045; 74018; 74176; 74177; 74240; 80048; 80053; 81001; 82607; 82728; 83036; 83540; 83550; 83605; 83690; 83735; 83880; 83930; 83935; 84100; 84300; 84443; 84484; 85025; 85027; 86850; 86900; 86901; 87040; 87077; 87086; 87186; 87338; 93005; 93010; 93306; 94640; 96365; 96366; 96368; A4314; C1764; C2613; J0360; J0696; J1644; J1650; J1940; J2270; J2405; J2470; J2543; J2704; J3010; J3475; J3480; J7030; J7050; J7070; P9016; P9047; Q9963; Q9967